=== PATIENT | female | born 1945 | race Caucasian/White ===

== ENCOUNTER → 2017-07-29 | Outpatient (CLI) | payer OTHER ==
[~2017-07-29] MED LIST: ROBAXIN750 MG PO; TRAMADOL HCL50 MG PO; VICODIN 500 MG-1 TAB PO
== END | disposition home or self-care (01) ==
LOC: MAMMO 03:01
DX: Z12.31 Encounter for screening mammogram for malignant neoplasm of breast (principal)

== ENCOUNTER → 2018-08-05 | Outpatient (CLI) | payer OTHER | END | disposition home or self-care (01) | LOC: MAMMO 08:40 | DX: Z12.31 Encounter for screening mammogram for malignant neoplasm of breast (principal) ==

== ENCOUNTER → 2019-10-14 | Outpatient (CLI) | payer OTHER ==
[~2019-10-14] MED LIST changes: +CARBIDOPA-LEVO1 EAC7 PO; +CITALOPRAM20 MG PO; +CLARITIN10 MG PO; +HYDROCODONE-AC1 EAC1 PO; +LORAZEPAM0.5 MG PO; +LOVASTATIN40 MG PO; +PROPRANOLOL HCL40 M1 PO
== END | disposition home or self-care (01) ==
LOC: LAB 16:07
DX: R05 Cough (principal)

== ENCOUNTER → 2020-07-27 | Outpatient (CLI) | payer OTHER ==
[2020-07-27 14:55] LABS: CHOLESTEROL 172 mg/dL (<200); HDL CHOLESTEROL 37 mg/dl (40-60); LDL CHOLESTEROL 108 mg/dL (9-159); TRIGLYCERIDES 137 mg/dl (<150); VLDL CHOLESTEROL 27 mg/dL (6-40)
== END | disposition home or self-care (01) ==
LOC: RAD 07-25 13:30 → LAB 13:27 → RAD 13:30
PROVIDERS: ATTEND Internal Medicine
DX: M81.0 Age-related osteoporosis without current pathological fracture (principal); E78.5 Hyperlipidemia, unspecified; M54.9 Dorsalgia, unspecified; Z78.0 Asymptomatic menopausal state

== ENCOUNTER → 2020-09-25 | Outpatient (CLI) | payer OTHER | END | disposition home or self-care (01) | LOC: MAMMO 13:49 | PROVIDERS: ATTEND Internal Medicine | DX: Z12.31 Encounter for screening mammogram for malignant neoplasm of breast (principal) ==

== ENCOUNTER → 2022-03-25 | Outpatient (CLI) | payer OTHER | END | disposition home or self-care (01) | LOC: MAMMO 13:16 | PROVIDERS: ATTEND Internal Medicine | DX: Z12.31 Encounter for screening mammogram for malignant neoplasm of breast (principal) ==

== ENCOUNTER → 2023-05-20 | Outpatient (CLI) | payer OTHER | LOC: RAD 12:49 | PROVIDERS: ATTEND Internal Medicine | DX: I70.0 Atherosclerosis of aorta (principal); M54.9 Dorsalgia, unspecified ==

== ENCOUNTER → 2023-07-14 | Outpatient (CLI) | payer OTHER | END | disposition home or self-care (01) | LOC: RAD 13:30 | PROVIDERS: ATTEND Internal Medicine | DX: Z12.31 Encounter for screening mammogram for malignant neoplasm of breast (principal); S22.080A Wedge compression fracture of T11-T12 vertebra, initial encounter for closed fracture; M81.0 Age-related osteoporosis without current pathological fracture; X58.XXXA Exposure to other specified factors, initial encounter; Y93.89 Activity, other specified; Y92.89 Other specified places as the place of occurrence of the external cause; Y99.8 Other external cause status ==